=== PATIENT | male | born 1960 | race Caucasian/White ===

== ENCOUNTER 2018-11-19 08:15 | Outpatient (RCR) | payer MEDICARE, SELFPAY ==
[2018-08-28 12:26] VITALS: BMI 34.2
[2018-10-29 16:09] LABS: Hematocrit 26.7 % (40-54); Hemoglobin 8.6 g/dL (13.0-16.5); Mean Corp Hgb Conc 32.2 g/dL (32-36); Mean Corpuscular Hgb 32.7 pg (27.0-32.0); Mean Corpuscular Volume 101.5 fL (80-94); Mean Platelet Vol. 10.1 fl (6.2-12.0); Platelet Count 172 K/mm3 (150-450); RBC Distribution Width CV 16.3 % (11.6-14.6); RBC Distribution Width SD 59.2 fl (35.1-43.9); Red Blood Count 2.63 M/mm3 (4.6-6.2); White Blood Count 11.1 K/mm3 (4.4-11.0)
[2018-10-29 17:01] LABS: BUN 81 mg/dL (7-18); BUN/Creat Ratio 6.7 RATIO (10-20); Calcium,Total 10.2 mg/dL (8.5-10.1); Chloride 100 mmol/L (98-107); EST Glomerular Filtration Rate 5 mL/min (>60); Est Glom Filt Rate - Afr Amer 6 mL/min (>60); Glucose 92 mg/dL (74-106); Phosphorus 7.5 mg/dL (2.5-4.9); Potassium 3.8 mmol/L (3.5-5.1); Sodium Level 138 mmol/L (136-145)
[2018-10-29 17:03] LABS: Protein:Creat Ratio 1982 mg/g CRE (0-200)
[2018-10-31 14:51] LABS: Prograf-FK506 TO CCF/UNIV MAILED SPECIMEN
[2018-11-02 08:35] LABS: Hematocrit 26.4 % (40-54); Hemoglobin 8.7 g/dL (13.0-16.5); Mean Corpuscular Hgb 33.7 pg (27.0-32.0); Mean Corpuscular Volume 102.3 fL (80-94); Mean Platelet Vol. 9.7 fl (6.2-12.0); Platelet Count 179 K/mm3 (150-450); RBC Distribution Width CV 16.6 % (11.6-14.6); RBC Distribution Width SD 60.9 fl (35.1-43.9); Red Blood Count 2.58 M/mm3 (4.6-6.2); White Blood Count 8.5 K/mm3 (4.4-11.0)
[2018-11-02 09:02] LABS: BUN 54 mg/dL (7-18); BUN/Creat Ratio 6.5 RATIO (10-20); Chloride 101 mmol/L (98-107); Creatinine, Serum 8.26 mg/dL (0.70-1.30); EST Glomerular Filtration Rate 7 mL/min (>60); Est Glom Filt Rate - Afr Amer 9 mL/min (>60); Glucose 106 mg/dL (74-106); Phosphorus 7.1 mg/dL (2.5-4.9); Potassium 3.6 mmol/L (3.5-5.1); Sodium Level 138 mmol/L (136-145)
[2018-11-02 09:16] LABS: Prograf-FK506 TO CCF/UNIV MAILED SPECIMEN
[2018-11-05 08:47] LABS: Hematocrit 26.9 % (40-54); Hemoglobin 8.6 g/dL (13.0-16.5); Mean Corpuscular Hgb 33.3 pg (27.0-32.0); Mean Corpuscular Volume 104.3 fL (80-94); Mean Platelet Vol. 9.4 fl (6.2-12.0); Platelet Count 199 K/mm3 (150-450); RBC Distribution Width CV 16.9 % (11.6-14.6); RBC Distribution Width SD 62.9 fl (35.1-43.9); Red Blood Count 2.58 M/mm3 (4.6-6.2); White Blood Count 7.5 K/mm3 (4.4-11.0)
[2018-11-05 09:29] LABS: Prograf-FK506 TO CCF/UNIV MAILED SPECIMEN
[2018-11-05 09:35] LABS: Albumin, Serum 3.1 g/dL (3.2-5.0); BUN 54 mg/dL (7-18); BUN/Creat Ratio 6.3 RATIO (10-20); Calcium,Total 10.1 mg/dL (8.5-10.1); Chloride 104 mmol/L (98-107); EST Glomerular Filtration Rate 7 mL/min (>60); Est Glom Filt Rate - Afr Amer 8 mL/min (>60); Glucose 103 mg/dL (74-106); Phosphorus 6.2 mg/dL (2.5-4.9); Potassium 3.9 mmol/L (3.5-5.1); Sodium Level 139 mmol/L (136-145)
[2018-11-07 08:31] LABS: Hematocrit 28.6 % (40-54); Hemoglobin 9.1 g/dL (13.0-16.5); Mean Corp Hgb Conc 31.8 g/dL (32-36); Mean Corpuscular Hgb 33.2 pg (27.0-32.0); Mean Corpuscular Volume 104.4 fL (80-94); Mean Platelet Vol. 9.5 fl (6.2-12.0); Platelet Count 223 K/mm3 (150-450); RBC Distribution Width CV 17.1 % (11.6-14.6); Red Blood Count 2.74 M/mm3 (4.6-6.2); White Blood Count 8.1 K/mm3 (4.4-11.0)
[2018-11-07 08:55] LABS: Albumin, Serum 3.2 g/dL (3.2-5.0); BUN 47 mg/dL (7-18); BUN/Creat Ratio 6.4 RATIO (10-20); Chloride 106 mmol/L (98-107); Creatinine, Serum 7.34 mg/dL (0.70-1.30); EST Glomerular Filtration Rate 8 mL/min (>60); Est Glom Filt Rate - Afr Amer 10 mL/min (>60); Glucose 109 mg/dL (74-106); Phosphorus 6.3 mg/dL (2.5-4.9); Potassium 3.8 mmol/L (3.5-5.1); Sodium Level 144 mmol/L (136-145)
[2018-11-07 09:04] LABS: Prograf-FK506 TO CCF/UNIV MAILED SPECIMEN
[2018-11-09 08:34] LABS: Hematocrit 27.9 % (40-54); Hemoglobin 8.9 g/dL (13.0-16.5); Mean Corp Hgb Conc 31.9 g/dL (32-36); Mean Corpuscular Hgb 33.5 pg (27.0-32.0); Mean Corpuscular Volume 104.9 fL (80-94); Mean Platelet Vol. 9.6 fl (6.2-12.0); POSITIVE MORPHOLOGY YES; Platelet Count 207 K/mm3 (150-450); RBC Distribution Width CV 17.2 % (11.6-14.6); RBC Distribution Width SD 65.9 fl (35.1-43.9); Red Blood Count 2.66 M/mm3 (4.6-6.2); Scan Indicated on CBC? Y/N YES- FLAGS NOTED
[2018-11-09 09:03] LABS: Albumin, Serum 3.2 g/dL (3.2-5.0); BUN 65 mg/dL (7-18); BUN/Creat Ratio 7.8 RATIO (10-20); Calcium,Total 10.1 mg/dL (8.5-10.1); Chloride 109 mmol/L (98-107); Creatinine, Serum 8.38 mg/dL (0.70-1.30); EST Glomerular Filtration Rate 7 mL/min (>60); Est Glom Filt Rate - Afr Amer 9 mL/min (>60); Glucose 114 mg/dL (74-106); Phosphorus 6.8 mg/dL (2.5-4.9); Potassium 4.1 mmol/L (3.5-5.1); Sodium Level 143 mmol/L (136-145)
[2018-11-09 09:12] LABS: Prograf-FK506 TO CCF/UNIV MAILED SPECIMEN
[2018-11-12 08:43] LABS: Hematocrit 26.6 % (40-54); Hemoglobin 8.5 g/dL (13.0-16.5); Mean Corpuscular Hgb 33.1 pg (27.0-32.0); Mean Corpuscular Volume 103.5 fL (80-94); Mean Platelet Vol. 9.5 fl (6.2-12.0); POSITIVE MORPHOLOGY YES; Platelet Count 189 K/mm3 (150-450); RBC Distribution Width CV 17.4 % (11.6-14.6); Red Blood Count 2.57 M/mm3 (4.6-6.2); White Blood Count 7.8 K/mm3 (4.4-11.0)
[2018-11-12 08:56] LABS: Scan Indicated on CBC? Y/N YES- FLAGS NOTED
[2018-11-12 09:27] LABS: Prograf-FK506 TO CCF/UNIV MAILED SPECIMEN
[2018-11-12 09:39] LABS: Albumin, Serum 3.1 g/dL (3.2-5.0); BUN 88 mg/dL (7-18); BUN/Creat Ratio 11.5 RATIO (10-20); Calcium,Total 10.1 mg/dL (8.5-10.1); Chloride 108 mmol/L (98-107); Creatinine, Serum 7.63 mg/dL (0.70-1.30); EST Glomerular Filtration Rate 8 mL/min (>60); Est Glom Filt Rate - Afr Amer 10 mL/min (>60); Glucose 113 mg/dL (74-106); Phosphorus 6.7 mg/dL (2.5-4.9); Potassium 4.4 mmol/L (3.5-5.1); Sodium Level 141 mmol/L (136-145)
[2018-11-15 09:05] LABS: Hematocrit 29.9 % (40-54); Hemoglobin 9.6 g/dL (13.0-16.5); Mean Corp Hgb Conc 32.1 g/dL (32-36); Mean Corpuscular Hgb 33.4 pg (27.0-32.0); Mean Corpuscular Volume 104.2 fL (80-94); Mean Platelet Vol. 9.8 fl (6.2-12.0); POSITIVE MORPHOLOGY YES; Platelet Count 210 K/mm3 (150-450); RBC Distribution Width CV 17.2 % (11.6-14.6); RBC Distribution Width SD 65.9 fl (35.1-43.9); Red Blood Count 2.87 M/mm3 (4.6-6.2)
[2018-11-15 09:10] LABS: Scan Indicated on CBC? Y/N YES- FLAGS NOTED
[2018-11-15 09:26] LABS: Prograf-FK506 TO CCF/UNIV MAILED SPECIMEN
[2018-11-15 09:33] LABS: Albumin, Serum 3.4 g/dL (3.2-5.0); BUN 85 mg/dL (7-18); BUN/Creat Ratio 13.1 RATIO (10-20); Calcium,Total 10.4 mg/dL (8.5-10.1); Chloride 111 mmol/L (98-107); Creatinine, Serum 6.47 mg/dL (0.70-1.30); EST Glomerular Filtration Rate 10 mL/min (>60); Est Glom Filt Rate - Afr Amer 12 mL/min (>60); Glucose 95 mg/dL (74-106); Potassium 5.1 mmol/L (3.5-5.1); Sodium Level 142 mmol/L (136-145)
[2018-11-19 09:18] LABS: Prograf-FK506 TO CCF/UNIV MAILED SPECIMEN
[2018-11-19 09:33] LABS: Hemoglobin 10.2 g/dL (13.0-16.5); Mean Corp Hgb Conc 31.9 g/dL (32-36); Mean Corpuscular Volume 103.6 fL (80-94); POSITIVE MORPHOLOGY YES; Platelet Count 205 K/mm3 (150-450); RBC Distribution Width CV 17.5 % (11.6-14.6); RBC Distribution Width SD 66.4 fl (35.1-43.9); Red Blood Count 3.09 M/mm3 (4.6-6.2); White Blood Count 12.8 K/mm3 (4.4-11.0)
[2018-11-19 09:36] LABS: Scan Indicated on CBC? Y/N YES- FLAGS NOTED
[2018-11-19 10:00] LABS: Albumin, Serum 3.5 g/dL (3.2-5.0); BUN 70 mg/dL (7-18); BUN/Creat Ratio 13.7 RATIO (10-20); Calcium,Total 10.9 mg/dL (8.5-10.1); Chloride 114 mmol/L (98-107); Creatinine, Serum 5.12 mg/dL (0.70-1.30); EST Glomerular Filtration Rate 13 mL/min (>60); Est Glom Filt Rate - Afr Amer 15 mL/min (>60); Glucose 94 mg/dL (74-106); Phosphorus 4.6 mg/dL (2.5-4.9); Potassium 5.3 mmol/L (3.5-5.1); Sodium Level 143 mmol/L (136-145)
[2018-11-19 10:01] LABS: Differential Comment SCANNED
== END 2018-11-22 09:00 | disposition home or self-care (01) ==
LOC: LAB 08:15
PROVIDERS: Family Provider Family Medicine; PCP Family Medicine
DX: Z94.0 Kidney transplant status (principal)
CPT/HCPCS: 36415; 80069; 82570; 84156; 85027

== ENCOUNTER 2018-12-24 08:26 | Outpatient (RCR) | payer MEDICARE, SELFPAY ==
[2018-08-28 12:26] VITALS: BMI 34.2
[2018-11-27 09:20] LABS: Prograf-FK506 TO CCF/UNIV MAILED SPECIMEN
[2018-11-27 09:24] LABS: Hematocrit 30.4 % (40-54); Hemoglobin 9.6 g/dL (13.0-16.5); Mean Corp Hgb Conc 31.6 g/dL (32-36); Mean Corpuscular Hgb 33.1 pg (27.0-32.0); Mean Corpuscular Volume 104.8 fL (80-94); Mean Platelet Vol. 9.9 fl (6.2-12.0); POSITIVE MORPHOLOGY YES; Platelet Count 183 K/mm3 (150-450); RBC Distribution Width CV 17.5 % (11.6-14.6); RBC Distribution Width SD 67.3 fl (35.1-43.9); White Blood Count 8.6 K/mm3 (4.4-11.0)
[2018-11-27 09:30] LABS: Scan Indicated on CBC? Y/N YES- FLAGS NOTED
[2018-11-27 09:47] LABS: Albumin, Serum 3.2 g/dL (3.2-5.0); BUN 44 mg/dL (7-18); BUN/Creat Ratio 10.9 RATIO (10-20); Calcium,Total 10.3 mg/dL (8.5-10.1); Chloride 112 mmol/L (98-107); Creatinine, Serum 4.04 mg/dL (0.70-1.30); EST Glomerular Filtration Rate 16 mL/min (>60); Est Glom Filt Rate - Afr Amer 20 mL/min (>60); Glucose 104 mg/dL (74-106); Phosphorus 4.1 mg/dL (2.5-4.9); Potassium 4.5 mmol/L (3.5-5.1); Sodium Level 142 mmol/L (136-145)
[2018-12-10 08:43] LABS: Hematocrit 32.1 % (40-54); Hemoglobin 9.9 g/dL (13.0-16.5); Mean Corp Hgb Conc 30.8 g/dL (32-36); Mean Corpuscular Hgb 33.4 pg (27.0-32.0); Mean Corpuscular Volume 108.4 fL (80-94); Mean Platelet Vol. 9.7 fl (6.2-12.0); POSITIVE MORPHOLOGY YES; Platelet Count 190 K/mm3 (150-450); RBC Distribution Width CV 18.3 % (11.6-14.6); RBC Distribution Width SD 72.7 fl (35.1-43.9); Red Blood Count 2.96 M/mm3 (4.6-6.2); White Blood Count 7.6 K/mm3 (4.4-11.0)
[2018-12-10 08:45] LABS: Scan Indicated on CBC? Y/N YES- FLAGS NOTED
[2018-12-10 09:22] LABS: Prograf-FK506 TO CCF/UNIV MAILED SPECIMEN
[2018-12-10 09:24] LABS: Albumin, Serum 3.1 g/dL (3.2-5.0); BUN 34 mg/dL (7-18); BUN/Creat Ratio 12.2 RATIO (10-20); Calcium,Total 10.3 mg/dL (8.5-10.1); Chloride 117 mmol/L (98-107); Creatinine, Serum 2.78 mg/dL (0.70-1.30); EST Glomerular Filtration Rate 25 mL/min (>60); Est Glom Filt Rate - Afr Amer 31 mL/min (>60); Glucose 88 mg/dL (74-106); Phosphorus 3.9 mg/dL (2.5-4.9); Potassium 5.3 mmol/L (3.5-5.1); Sodium Level 145 mmol/L (136-145)
[2018-12-17 08:36] LABS: Hematocrit 31.9 % (40-54); Mean Corp Hgb Conc 31.3 g/dL (32-36); Mean Corpuscular Hgb 34.1 pg (27.0-32.0); Mean Corpuscular Volume 108.9 fL (80-94); POSITIVE MORPHOLOGY YES; Platelet Count 176 K/mm3 (150-450); RBC Distribution Width CV 18.5 % (11.6-14.6); RBC Distribution Width SD 75.6 fl (35.1-43.9); Red Blood Count 2.93 M/mm3 (4.6-6.2); White Blood Count 8.5 K/mm3 (4.4-11.0)
[2018-12-17 08:38] LABS: Scan Indicated on CBC? Y/N YES- FLAGS NOTED
[2018-12-17 09:12] LABS: Prograf-FK506 TO CCF/UNIV MAILED SPECIMEN
[2018-12-17 09:22] LABS: Albumin, Serum 3.2 g/dL (3.2-5.0); BUN 34 mg/dL (7-18); BUN/Creat Ratio 12.8 RATIO (10-20); Calcium,Total 10.7 mg/dL (8.5-10.1); Chloride 118 mmol/L (98-107); Creatinine, Serum 2.66 mg/dL (0.70-1.30); EST Glomerular Filtration Rate 27 mL/min (>60); Est Glom Filt Rate - Afr Amer 32 mL/min (>60); Glucose 108 mg/dL (74-106); Phosphorus 2.9 mg/dL (2.5-4.9); Potassium 5.2 mmol/L (3.5-5.1); Sodium Level 144 mmol/L (136-145)
[2018-12-24 08:59] LABS: Hematocrit 33.1 % (40-54); Hemoglobin 10.2 g/dL (13.0-16.5); Mean Corp Hgb Conc 30.8 g/dL (32-36); Mean Corpuscular Hgb 33.4 pg (27.0-32.0); Mean Corpuscular Volume 108.5 fL (80-94); Mean Platelet Vol. 10.4 fl (6.2-12.0); POSITIVE MORPHOLOGY YES; Platelet Count 178 K/mm3 (150-450); RBC Distribution Width SD 72.5 fl (35.1-43.9); Red Blood Count 3.05 M/mm3 (4.6-6.2); White Blood Count 8.7 K/mm3 (4.4-11.0)
[2018-12-24 09:03] LABS: Scan Indicated on CBC? Y/N YES- FLAGS NOTED
[2018-12-24 09:26] LABS: BUN 28 mg/dL (7-18); Creatinine, Serum 2.74 mg/dL (0.70-1.30); Glucose 95 mg/dL (74-106)
[2018-12-24 09:27] LABS: Albumin, Serum 3.4 g/dL (3.2-5.0); BUN/Creat Ratio 10.2 RATIO (10-20); Calcium,Total 10.9 mg/dL (8.5-10.1); Chloride 117 mmol/L (98-107); EST Glomerular Filtration Rate 26 mL/min (>60); Est Glom Filt Rate - Afr Amer 31 mL/min (>60); Phosphorus 3.1 mg/dL (2.5-4.9); Potassium 4.9 mmol/L (3.5-5.1); Sodium Level 144 mmol/L (136-145)
[2019-01-10 10:41] LABS: Prograf-FK506 TO CCF/UNIV MAILED SPECIMEN
== END 2018-12-24 16:27 | disposition home or self-care (01) ==
LOC: LAB 08:26
PROVIDERS: Family Provider Family Medicine; PCP Family Medicine
DX: Z94.0 Kidney transplant status (principal)
CPT/HCPCS: 36415; 80069; 80197; 85027

== ENCOUNTER → 2020-06-08 07:18 | Outpatient (CLI) | payer MEDICARE, SELFPAY ==
[2020-05-29 08:16] VITALS: BMI 32.0
--- NOTE | 2020-06-08 12:54 | STRESSREP ---
Stress Test Report Pharmacologic myocardial perfusion stress test. 59-year-old male with a history of coronary artery disease status post angioplasty and stenting of the left circumflex artery. Stress protocol: Resting EKG demonstrates sinus bradycardia with a rate of 47 bpm normal intervals are noted resting blood pressure is 1 and 32/60 8 mmHg. 0.4 mg of regadenoson was infused per usual protocol followed by rapid intravenous saline flush injection continuous EKG monitoring was performed. The maximum heart rate attained was 72 bpm which was 44% of max impacted heart rate the maximum workload was 1 metabolic equivalent. At rest there were no ST or T wave changes noted to suggest abnormal flow reserve. The resting blood pressure is 1 and 32/68 with a final blood pressure 142/78 mmHg. Myocardial perfusion protocol. 13.9 mCi of technetium 99m sestamibi was injected at rest. 0.4 mg of regadenoson was infused per usual protocol. At peak infusion 44.3 mCi of technetium 99m?sestamibi was injected stress images were obtained stress and rest images were reconstructed and compared in the short axis vertical long and horizontal long axis. Gated images were also obtained Perfusion SPECT analysis: Review of the stress images demonstrate a normal cardiac silhouette size. There is a medium size defect noted in the basal inferior wall as well as the mid inferior wall on the stress images and on the resting images a similar pattern is also noted. The rest of the henderson namely the septum anterior wall and lateral wall appear to be well perfused without any reversibility to suggest ischemia. The above is suggestive of a previous inferior myocardial infarction. Gated SPECT analysis: The gated ejection fraction is 64%. Conclusion: Pharmacologic myocardial perfusion stress test with evidence of previous inferior infarct. No ischemia noted. Preserved ejection fraction.
== END ==
PROVIDERS: PCP Family Medicine; Referring Provider Internal Medicine Cardiovascular Disease; Visit Provider Internal Medicine Cardiovascular Disease
DX: I25.10 Atherosclerotic heart disease of native coronary artery without angina pectoris (principal); Z95.5 Presence of coronary angioplasty implant and graft
CPT/HCPCS: 78452; 93017; A9500; A4216; J2785

== ENCOUNTER → 2021-12-08 | Outpatient (CLI) | payer MEDICARE, SELFPAY ==
--- NOTE | 2021-12-08 13:12 | CDU_ITS ---
Reason For Study: BRUIT Rt. Velocities/BP Lt. Velocities/BP Prox CCA 96.0/11.3 cm/sec. Prox CCA 120.4/16.3 cm/sec. Mid CCA 75.4/14.9 cm/sec. Mid CCA 111.2/25.4 cm/sec. Dist CCA 53.4/13.8 cm/sec. Dist CCA 100.3/19.9 cm/sec. Prox ICA 46.2/13.1 cm/sec. Prox ICA 57.4/6.8 cm/sec. Mid ICA 60.4/20.7 cm/sec. Mid ICA 63.3/21.5 cm/sec. Dist ICA 114.3/28.5 cm/sec. Dist ICA 87.5/27.0 cm/sec. Rt. ICA/CCA = 114.3/75.4=1.52. Lt. ICA/CCA = 87.5/111.2=0.79. Prox ECA 86.4/8.4 cm/sec. Prox ECA 82.0/8.9 cm/sec. Rt. Vert. 29.0/7.2 cm/sec. Lt. Vert. 62.9/18.5 cm/sec. Right Extracranial There is heterogeneous, smooth atherosclerotic plaque noted in the right common carotid artery. There is heterogeneous, irregular atherosclerotic plaque noted in the right internal carotid artery. The right internal carotid artery is very tortuous. There is heterogeneous, irregular atherosclerotic plaque noted in the right external carotid artery. Antegrade flow is noted in the right vertebral artery. Left Extracranial There is heterogeneous, irregular atherosclerotic plaque noted in the left common carotid artery. There is heterogeneous, irregular atherosclerotic plaque noted in the left internal carotid artery. The atherosclerotic plaque causes acoustic shadowing. There is heterogeneous, smooth atherosclerotic plaque noted in the left external carotid artery. Antegrade flow is noted in the left vertebral artery. Procedure Carotid Duplex 52691. The study was technically difficult. Exam performed in department. VL/Carotid Duplex Ultrasound Interpretation Summary Mild (<50%) stenosis right extracranial internal carotid. Mild (<50%) stenosis left extracranial internal carotid. Patent and antegrade vertebrals bilaterally. Ordering Physician: Wil Dowell Referring Physician: Bro Bowie Performed By: Kati Morocho, VÍCTOR, RVT
== END | disposition home or self-care (01) ==
LOC: CVS 13:11
PROVIDERS: PCP Family Medicine; Referring Provider Internal Medicine Cardiovascular Disease; Visit Provider Internal Medicine Cardiovascular Disease
DX: I65.23 Occlusion and stenosis of bilateral carotid arteries (principal)
CPT/HCPCS: 93880

== ENCOUNTER → 2022-04-13 | Outpatient (CLI) | payer MEDICARE, SELFPAY ==
--- NOTE | 2022-04-13 13:59 | ECHOD_ITS ---
Reason For Study: Evaluate Aortic root Procedure This was a 2D Doppler, Color Flow transthoracic echocardiogram. Exam performed in department. Left Ventricle Normal LV size. Moderate concentric left ventricular hypertrophy. Left ventricular systolic function is normal. The estimated ejection fraction is 60 %. Stage 3 diastolic dysfunction. No regional wall motion abnormalities noted. Right Ventricle Normal RV size. Normal systolic function. Atria The left atrium is moderately enlarged. The right atrium is moderately enlarged. Mitral Valve There is mild to moderate mitral annular calcification. Mild (1+) eccentric mitral valve insufficiency. Tricuspid Valve Normal tricuspid valve. Mild tricuspid valve insufficiency. Pulmonary artery systolic pressure is 32 mmHg. Aortic Valve Trisinus/trileaflet aortic valve. Mild focal aortic valve calcification. Pulmonic Valve Normal pulmonic valve. Great Vessels Mildly dilated aortic root. The pulmonary artery is normal size. Normal inferior vena cava. Pericardium/Pleural No pericardial effusion. MMode/2D Measurements & Calculations LVIDd: 4.5 cm IVSd: 1.5 cm Ao root diam: 4.4 cm LVIDs: 2.4 cm LVPWd: 1.5 cm RVDd: 3.4 cm FS: 45.7 % LAV(MOD-bp): 92.2 ml LVAd ap4: 25.0 cm2 SV(MOD-sp4): 39.9 ml LAV(MOD-bp) Indexed: 42.2 ml/m2 LVLd ap4: 7.7 cm LAV(MOD-sp2): 115.0 ml EDV(MOD-sp4): 67.4 ml LAV(MOD-sp4): 72.4 ml EDV(sp4-el): 69.4 ml LVAs ap4: 15.4 cm2 LVLs ap4: 6.9 cm ESV(MOD-sp4): 27.5 ml ESV(sp4-el): 29.0 ml EF(MOD-sp4): 59.2 % EF(sp4-el): 58.2 % SV(sp4-el): 40.4 ml LA A4 area: 26.3 cm2 LA dimension(2D): 4.0 cm RA A4 area: 29.4 cm2 Time Measurements MV dec time: 0.20 sec Doppler Measurements & Calculations MV E max bentley: 120.7 cm/sec Lat Peak E' Bentley: 10.6 cm/sec Med Peak E' Bentley: 12.2 cm/sec MV A max bentley: 23.8 cm/sec E/E' lat: 11.4 E/E' med: 9.9 MV E/A: 5.1 MV V2 max: 131.0 cm/sec Ao V2 max: 153.0 cm/sec MV max P.9 mmHg MV dec slope: 611.3 cm/sec2 Ao max P.5 mmHg MV V2 mean: 63.7 cm/sec Ao V2 mean: 104.9 cm/sec MV mean P.2 mmHg Ao mean P.2 mmHg MV V2 VTI: 33.9 cm Ao V2 VTI: 32.6 cm AV (velocity ratio): 0.86 LV V1 max: 127.7 cm/sec PA V2 max: 110.1 cm/sec TR max bentley: 263.8 cm/sec LV V1 max P.5 mmHg PA V2 mean: 68.6 cm/sec TR max P.8 mmHg LV V1 mean P.6 mmHg LV V1 mean: 88.5 cm/sec LV V1 VTI: 28.1 cm ECHO/Echo Complete Interpretation Summary Normal LV size. Moderate concentric left ventricular hypertrophy. Left ventricular systolic function is normal. The estimated ejection fraction is 60 %. Stage 3 diastolic dysfunction. Mildly dilated aortic root. Compared to the previous echocardiogram the aortic root dimensions are essentially unchanged measuring 4.3 to 4.4 cm Ordering Physician: Gamal Giron Referring Physician: Bro Bowie Performed By: Tiffany Davey RCS
== END | disposition home or self-care (01) ==
PROVIDERS: PCP Family Medicine; Visit Provider Nurse Practitioner Family
DX: I25.10 Atherosclerotic heart disease of native coronary artery without angina pectoris (principal); I77.819 Aortic ectasia, unspecified site; I10 Essential (primary) hypertension; Z94.0 Kidney transplant status; Z95.5 Presence of coronary angioplasty implant and graft
CPT/HCPCS: 93306

== ENCOUNTER → 2022-07-21 | Outpatient (CLI) | payer MEDICARE, SELFPAY | END | disposition home or self-care (01) | LOC: CVS 10:45 | PROVIDERS: PCP Family Medicine; Referring Provider Internal Medicine Cardiovascular Disease; Visit Provider Internal Medicine Cardiovascular Disease | DX: R03.0 Elevated blood-pressure reading, without diagnosis of hypertension (principal) | CPT/HCPCS: 93788 ==

== ENCOUNTER → 2022-08-03 | Outpatient (CLI) | payer MEDICARE, SELFPAY ==
--- NOTE | 2022-08-03 17:24 | STRESSREP ---
Stress Test Report Exercise myocardial perfusion stress test. 62-year-old man with a history of coronary artery disease and new onset atrial fibrillation Stress protocol: Resting EKG demonstrates atrial fibrillation with a rate of 57 bpm resting blood pressure is 124/66 mmHg. The patient exercised according to the regular Jean protocol for a total duration of 4 minutes and 35 seconds attaining a maximum heart rate of 136 bpm which was 85% of maximum predicted heart rate; the maximum workload was 7 metabolic equivalents. At rest there were no ST or T wave changes noted to suggest ischemia and at peak exercise upsloping ST changes only were noted which did not meet the criteria for ischemia. No clinical angina was noted the test was terminated due to the target heart rate being achieved/fatigue. The peak blood pressure was 152/70 mmHg. Rate-pressure product was 12,600. Myocardial perfusion protocol. 14.2 mCi of technetium 99m sestamibi was injected at rest. The patient exercised according to regular Jaen protocol for total duration of 4 minutes and 35 seconds and at peak exercise 44.1 mCi of technetium 99m sestamibi was injected stress images were obtained stress and rest images were reconstructed in comparing the short axis vertical long and horizontal long axis. Gated images were also obtained. Perfusion SPECT analysis: Review of the stress images demonstrate normal uptake of tracer noted in all areas of the myocardium. Significant GI uptake is noted obscuring part of the inferior wall the resting images similarly demonstrate normal uptake of tracer noted in all areas of the myocardium. Significant GI uptake is noted and no areas of reversibility are noted to suggest ischemia no previous infarct was noted. Gated SPECT analysis: The gated ejection fraction is 60%. Conclusion: Normal exercise myocardial perfusion stress test at a moderate workload. GI uptake noted. Atrial fibrillation present Preserved ejection fraction.
== END | disposition home or self-care (01) ==
LOC: CVS 06:41
PROVIDERS: PCP Family Medicine; Referring Provider Nurse Practitioner Family; Visit Provider Nurse Practitioner Family
DX: R06.02 Shortness of breath (principal); I48.91 Unspecified atrial fibrillation; I25.10 Atherosclerotic heart disease of native coronary artery without angina pectoris; Z95.5 Presence of coronary angioplasty implant and graft
CPT/HCPCS: 78452; 93017; A9500; A4216

== ENCOUNTER 2022-09-26 10:33 | Day surgery (SDC) | payer MEDICARE, SELFPAY ==
[2022-09-23 08:06] VITALS: BMI 33.0
[2022-09-26 11:10] LABS: International Normalized Ratio 2.8; Prothrombin Time (Protime)PT. 29.6 SECONDS (11.7-14.9)
[2022-09-26 11:15] LABS: AST(SGOT) 17 U/L (15-37); Alanine Aminotransfer ALT/SGPT 29 U/L (16-61); Albumin, Serum 3.4 g/dL (3.2-5.0); Alkaline Phosphatase 82 U/L (45-117); Anion Gap 1 (5-15); BUN 32 mg/dL (7-18); BUN/Creat Ratio 15.2 RATIO (10-20); Bilirubin, Direct 0.27 mg/dL (0.00-0.30); Calcium,Total 9.4 mg/dL (8.5-10.1); Chloride 114 mmol/L (98-107); Cholesterol 88 mg/dL (200); Creatinine, Serum 2.11 mg/dL (0.70-1.30); EST Glomerular Filtration Rate 34 mL/min (>60); Est Glom Filt Rate - Afr Amer 41 mL/min (>60); Estimated Creatinine Clearance 37.23 ml/min; Globulin 3.4 g/dL (2.2-4.2); Glucose 92 mg/dL (74-106); High Density Lipoprotein 41 mg/dL; Potassium 4.9 mmol/L (3.5-5.1); Protein, Total 6.8 g/dL (6.4-8.2); Sodium Level 140 mmol/L (136-145); Triglycerides 55 mg/dL; Very Low Density Lipoprotein 11 mg/dL (5-40)
[2022-09-26 11:55] VITALS: PULSE 59; RESP 12; RESP 18; O2SAT 100
--- NOTE | 2022-09-26 12:15 | CON.PCM.CC_ITS ---
Assessment & Plan Assessment/Plan (1) New onset atrial fibrillation: PLAN: cleared for elective cardioversion under moderate sedation with propofol. Patient is ASA III with Mallampati 2 airway. CPAP during procedure as noted below, in semi-Louise's position. - patient had successful cardioversion x 1 uneventfully, with stable card iorespiratory parameters. 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 Plan to provide CPAP 14 cm with nasal mask during procedure to avoid hypoxia/respiratory instability during procedure. HPI Consult Data Date of Consult: 09/26/22 HPI Narrative Reason for Consultation: moderate sedation, TOMY, former 45 pack year smoker, for c'version for AF HPI Narrative: KATIE ALVARADO, is a 62 M who presents with ~2 weeks of fatigue, found to be in afib/bradycardia. He has been chronically anticoagulated since recurrent DVTs in ~2007; never recurred on anticoagulation, no PEs. 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 PMH remarkable for TOMY on CPAP nasal mask since ~2003, managed on 14 cm by his primary physician. Cannot sleep flat due to can't breathe. No h/o CHF or edema. Compliant with CPAP nightly, feels rested after use, can't sleep without it. 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 Had post op NE, cath with SHAHBAZ stent to RCA 2016, echo 04/18 EF 55-60%, mod concentric LVH, diastolic dysfuntion. Cardiology visit 08/30 with BMI 33, wt 224 lbs, SpO2 RA 97%. Stress test 08/16 negative for ischemia. EKG showed AF rate 43 (on metoprolol). Chart reviewed. Former 45 pack-year smoker, quit 2013. no drug or significant EtOH use, no trouble with anesthesia, no pulmonary symptoms, pleurisy, wheeze, cough, has mMRC class 2 dyspnea (stops walking up incline). Not on onhalers, no PFT results remembered, not on O2. No prior dx of asthma or COPD. Prior remote pneumonia with complete recovery. Meds reviewed. Fam Hx, social hx, 10 system ROS unremarkable. Stated normal renal function. Shunt functioning well. [facility] Medical History (Updated 09/26/22 @ 12:[address] Zack Mcarthur MD) Aortic dilatation Atherosclerotic heart disease of [place] coronary artery without angina pectoris Carotid bruit Chronic progressive renal failure DVT (deep venous thrombosis) End stage chronic kidney disease Essential (primary) hypertension Obstructive sleep apnea (adult) (pediatric) Peripheral vascular occlusive disease Postoperative non-ST elevation myocardial infarction (NSTEMI) (10/12/18) Recurrent deep vein thrombosis Home Medications warfarin 3 mg tablet 3 mg PO 2XW 08/10/17 [History Last Taken Unknown] clopidogrel 75 mg tablet 75 mg PO QDAY #90 tabs 08/28/18 [Rx Last Taken Unknown] atorvastatin 80 mg tablet 80 mg PO QHS 02/15/19 [History Last Taken Unknown] prednisone 5 mg tablet 5 mg PO DAILY 08/21/19 [History Last Taken Unknown] valacyclovir 500 mg tablet 500 mg PO BID 05/29/20 [History Last Taken Unknown] tacrolimus 0.5 mg capsule, immediate-release 0.5 mg PO Q12H 10/19/21 [History Last Taken Unknown] amlodipine 10 mg tablet 10 mg PO DAILY 07/28/22 [History Last Taken Unknown] losartan 25 mg tablet 25 mg PO BID 07/28/22 [History Last Taken Unknown] metoprolol succinate 25 mg tablet,extended release 24 hr 25 mg PO DAILY 07/28/22 [History Last Taken Unknown] tamsulosin 0.4 mg capsule 0.8 mg PO DAILY 07/28/22 [History Last Taken Unknown] warfarin 2 mg tablet 2 mg PO 4XW 07/28/22 [History Last Taken Unknown] Allergy/AdvReac Type Severity Reaction Status Date / Time No Known Allergies Allergy Verified 09/23/22 08:12 Family History (Reviewed 08/29/22 @ 13:42 by Gamal Giron CHILD CARE CENTER ADMINISTRATOR, CHILD CARE CENTER ADMINISTRATOR-C) Mother CAD (coronary artery disease) Brother CAD (coronary artery disease) Hypertension Myocardial infarction Other Heart disease Surgical History History of coronary artery stent placement (10/13/18) History of peritoneal dialysis History of renal transplant (10/11/18) Hx of detached retina repair Hx of hemorrhoidectomy Social History (Reviewed 08/29/22 @ 13:42 by Gamal Giron CHILD CARE CENTER ADMINISTRATOR, CHILD CARE CENTER ADMINISTRATOR-C) Smoking Status: Former smoker alcohol intake: never substance use type: does not use caffeine: Yes Type: coffee Number of servings: 3 Physical Exam Const alert, oriented x3 and no apparent distress Constitutional Narrative: BMI 33 General Appearance: cooperative and comfortable Orientation / Consciousness: awake, oriented to person, oriented to place and oriented to time Exam Limitations: no limitations HEENT normocephalic HEENT Narrative: Mallampati 2 airway Head and Scalp: normal to inspection Face and Sinus: normal facial exam Nose: external nose normal Mouth: oral and palatal mucosa normal, lips normal and tongue normal Eyes PERRL and conjunctivae normal EOM: EOM abnormal Neck full ROM and no JVD General: normal visual inspection Lymph Lymphatic: no lymphadenopathy noted Chest inspection of chest normal Chest Narrative: normal to auscultation. Resp normal respiratory effort, normal air movement and clear to auscultation bilaterally Cardio S1 normal heart sound, S2 normal heart sound, no murmurs and peripheral pulses 2+ throughout; Negative for regular rhythm Jugular Venous Distention: Negative for JVD GI normal to inspection, nondistended, normoactive bowel sounds, soft to palpation, non-tender and non-distended Back/Spine no CVA tenderness Extremity Extremity Narrative: chronic venous stasis changes. no edema. Skin General Skin Exam: no breakdown Rashes: no rashes Neuro Speech: speech normal Motor Exam: strength 5/5 throughout Psych mental status grossly normal Speech: normal speech Mood & Affect: euthymic mood Thought Process: normal thought process Insight: insight good Lab / Micro Data 09/26/22 10:42 Labs: Laboratory Results - last 24 hr 09/26/22 10:42: PT 29.6 H, INR 2.8, Sodium 140, Potassium 4.9, Chloride 114 H, Carbon Dioxide 25.0, Anion Gap 1 L, BUN 32 H, Creatinine 2.11 H, Estim Creat Clear Calc 37.23, Est GFR (MDRD) Af Amer 41 L, Est GFR (MDRD) Non-Af 34 L, BUN/Creatinine Ratio 15.2, Glucose 92, Calcium 9.4, Total Bilirubin 0.80, Direct Bilirubin 0.27, AST 17, ALT 29, Alkaline Phosphatase 82, Total Protein 6.8, Albumin 3.4, Globulin 3.4, Triglycerides 55, Cholesterol 88, LDL Cholesterol 36, VLDL Cholesterol 11, HDL Cholesterol 41 Charges/Coding Visit Charges Office Visits / Consults: 90822 OP Consult L3
--- NOTE | 2022-09-26 12:23 | PRO.PCM_ITS ---
Procedure Report Date of Procedure: 09/26/22 DC cardio version. 62-year-old man with a history of symptomatic atrial fibrillation. Patient has been anticoagulated uninterrupted for minimum of 3 weeks. The patient was brought to the noninvasive lab. Informed consent was obtained. Anterior- posterior pads were applied. The patient was placed on a CPAP/BiPAP mask the patient was seen by the Dr. Mcarthur of the critical care division. 100 mg of intravenous propofol was administered and then 200 J of biphasic DC cardioversion energy were applied. Prompt reversal to sinus rhythm was noted. The patient tolerated the procedure well. Conclusion: Successful DC cardioversion from atrial fibrillation to sinus rhythm. Follow-up as per office protocol.
== END 2022-09-26 13:15 | disposition home or self-care (01) ==
LOC: CLSP 10:38
PROVIDERS: Nurse Practitioner Family; PCP Family Medicine; Referring Provider Internal Medicine Cardiovascular Disease; Visit Provider Internal Medicine Cardiovascular Disease
DX: I48.91 Unspecified atrial fibrillation (principal); I12.0 Hypertensive chronic kidney disease with stage 5 chronic kidney disease or end stage renal disease; N18.6 End stage renal disease; I77.819 Aortic ectasia, unspecified site; G47.33 Obstructive sleep apnea (adult) (pediatric); I25.10 Atherosclerotic heart disease of native coronary artery without angina pectoris; I65.23 Occlusion and stenosis of bilateral carotid arteries; I25.2 Old myocardial infarction; E66.9 Obesity, unspecified; Z68.33 Body mass index [BMI] 33.0-33.9, adult; Z94.0 Kidney transplant status; Z95.5 Presence of coronary angioplasty implant and graft; Z79.01 Long term (current) use of anticoagulants; Z79.02 Long term (current) use of antithrombotics/antiplatelets; Z79.899 Other long term (current) drug therapy; Z86.718 Personal history of other venous thrombosis and embolism; Z87.891 Personal history of nicotine dependence
CPT/HCPCS: 80048; 80061; 80076; 85610; 92960; 93005; 94002; J7040; A4216

== ENCOUNTER 2023-10-03 10:55 | Day surgery (SDC) | payer MEDICARE, SELFPAY ==
[2023-10-02 13:58] VITALS: BMI 32.0
[2023-10-03 11:14] LABS: INR Fingerstick 2.2; Prothrombin Time Fingerstick 22.9 SEC (11.7-14.9)
--- NOTE | 2023-10-03 12:26 | PRO.PCM_ITS ---
Procedure Report Date of Procedure: 10/03/23 DC cardioversion. 63-year-old man with a history of chronic persistent atrial fibrillation sy mptomatic. Patient has been on anticoagulation uninterrupted for minimum of 4 weeks. The patient was brought to the cardiac catheterization lab in the postabsorptive nonsedated state. Informed consent was obtained. The patient was seen by Dr. Lama of the critical care division. Anterior-posterior pads were applied. Patient was administered 100 mg of intravenous propofol. 200 J of synchronized DC cardioversion energy were applied with prompt reversal to sinus rhythm. Patient tolerated the procedure well. Conclusion: Successful DC cardioversion from atrial fibrillation to sinus rhythm. Follow-up as per office protocol.
--- NOTE | 2023-10-03 12:32 | PCM.OP.PRO ---
Procedure Report Date of Procedure: 10/03/23 CONSCIOUS SEDATION REPORT DATE OF SERVICE: October 03, 2023 BRIEF HISTORY OF PRESENT ILLNESS: The patient is a 63-year-old male who presented to [facility] for an elective outpatient cardioversion due to underlying atrial fibrillation. The patient denied any prior anesthetic complications. He is systemically anticoagulated on Coumadin with an INR this morning noted to be 2.2. His last surface echocardiogram demonstrated an ejection fraction of approximately 60%. PHYSICAL EXAMINATION: VITAL SIGNS: Reviewed and were acceptable. GENERAL: The patient is a male, in no apparent distress, speaking in full sentences. HEENT: Normocephalic, atraumatic. Mucous membranes are moist and pink. Good mouth opening noted. Trachea is midline. Good neck mobility. CHEST: S1, S2 irregularly irregular. No murmurs, rubs or gallops were noted. LUNGS: Clear to auscultation bilaterally without appreciable wheezes, rales or rhonchi. ABDOMEN: Soft, nontender, nondistended. Positive bowel sounds. EXTREMITIES: There is no clubbing, cyanosis or edema. ASA Class: II DESCRIPTION OF PROCEDURE: After confirmation of informed consent, the patient's anesthesia plan was reviewed in detail. Propofol was chosen. Risks and benefits were reviewed and the patient agreed to proceed. At 1205, the patient was given his first bolus of propofol. In total, the patient required 100 mg of propofol to achieve an appropriate level of sedation, after which time, he was given a 200 joule synchronized cardioversion by Dr. Dowell at the bedside. This was successful in achieving normal sinus rhythm. The patient was monitored until 1218, at which time he reached his baseline mental status and function. The patient tolerated the procedure well. COMPLICATIONS: None ESTIMATED BLOOD LOSS: None RECOMMENDATIONS: Okay to recover in usual fashion. Procedures Pulmonary Pulmonary Procedures /Diagnostic Testin Con Sedation
== END 2023-10-03 13:14 | disposition home or self-care (01) ==
PROVIDERS: PCP Nurse Practitioner Family; Referring Provider Internal Medicine Cardiovascular Disease; Visit Provider Internal Medicine Cardiovascular Disease
DX: I48.19 Other persistent atrial fibrillation (principal); I48.0 Paroxysmal atrial fibrillation; I25.10 Atherosclerotic heart disease of native coronary artery without angina pectoris; Z95.5 Presence of coronary angioplasty implant and graft; Z94.0 Kidney transplant status; Z79.899 Other long term (current) drug therapy; Z79.01 Long term (current) use of anticoagulants; I10 Essential (primary) hypertension; Z87.891 Personal history of nicotine dependence; I77.819 Aortic ectasia, unspecified site
CPT/HCPCS: 36416; 85610; 92960; 93005; J7040

== ENCOUNTER → 2024-06-18 | Outpatient (CLI) | payer MEDICARE, SELFPAY | END | disposition home or self-care (01) | PROVIDERS: PCP Family Medicine; Referring Provider Nurse Practitioner Family; Visit Provider Nurse Practitioner Family | DX: R00.1 Bradycardia, unspecified (principal) | CPT/HCPCS: 93225; 93226 ==

== ENCOUNTER → 2024-12-12 | Outpatient (CLI) | payer MEDICARE, SELFPAY ==
[2024-12-12 11:15] LABS: AST(SGOT) 17 U/L (<=37); Alanine Aminotransfer ALT/SGPT 19 U/L (<=46); Albumin, Serum 4.0 g/dL (3.4-4.8); Alkaline Phosphatase 83 U/L (40-129); Anion Gap 9 (5-15); BUN 32 mg/dL (4-19); BUN/Creat Ratio 18.2 RATIO (10-20); Calcium,Total 9.8 mg/dL (7.6-11.0); Carbon Dioxide 23.0 mmol/L (21.0-32.0); Chloride 106 mmol/L (98-108); Globulin 2.7 g/dL (2.2-4.2); Glucose 94 mg/dL (70-99); Magnesium 2.0 mg/dL (1.5-2.2); Potassium 4.3 mmol/L (3.3-5.1)
== END | disposition home or self-care (01) ==
PROVIDERS: PCP Family Medicine; Referring Provider Nurse Practitioner Family; Visit Provider Nurse Practitioner Family
DX: I48.0 Paroxysmal atrial fibrillation (principal); I77.819 Aortic ectasia, unspecified site; I10 Essential (primary) hypertension; Z94.0 Kidney transplant status; Z95.5 Presence of coronary angioplasty implant and graft
CPT/HCPCS: 36415; 80053; 83735; 84439; 84443

== ENCOUNTER → 2024-12-20 | Outpatient (CLI) | payer MEDICARE, SELFPAY | END | disposition home or self-care (01) | LOC: PSN 08:42 | PROVIDERS: PCP Family Medicine; Referring Provider Nurse Practitioner Family; Visit Provider Nurse Practitioner Family | DX: I77.819 Aortic ectasia, unspecified site (principal); I10 Essential (primary) hypertension; Z94.0 Kidney transplant status; Z95.5 Presence of coronary angioplasty implant and graft | CPT/HCPCS: 93225; 93226 ==

== ENCOUNTER → 2025-02-05 | Outpatient (CLI) | payer MEDICARE, SELFPAY ==
--- NOTE | 2025-02-05 13:57 | CDU_ITS ---
Reason For Study Reason For Study: Dizziness Rt. Velocities/BP Lt. Velocities/BP Prox CCA 82.8/8 cm/sec. Prox CCA 105.2/12.1 cm/sec. Mid CCA 78.4/11.3 cm/sec. Mid CCA 112.5/13.9 cm/sec. Dist CCA 64.1/11.3 cm/sec. Dist CCA 77.8/15.7 cm/sec. Prox ICA 64.1/10.2 cm/sec. Prox ICA 63.3/12.7 cm/sec. Mid ICA 69.4/11.8 cm/sec. Mid ICA 51.4/15.4 cm/sec. Dist ICA 57.9/12.6 cm/sec. Dist ICA 65.5/18.2 cm/sec. Rt. ICA/CCA = 0.89. Lt. ICA/CCA = 0.58. Prox ECA 114.6/6.9 cm/sec. Prox ECA 96.1/10.2 cm/sec. Lt. Vert. 50.6/11 cm/sec. Right Extracranial There is heterogeneous, smooth atherosclerotic plaque noted in the right common carotid artery. There is heterogeneous, irregular atherosclerotic plaque noted in the right internal carotid artery. There is heterogeneous, irregular atherosclerotic plaque noted in the right external carotid artery. Bidirectional flow noted in the right vertebral artery. Left Extracranial There is heterogeneous, irregular atherosclerotic plaque noted in the left common carotid artery. There is heterogeneous, irregular atherosclerotic plaque noted in the left internal carotid artery. There is heterogeneous, irregular atherosclerotic plaque noted in the left external carotid artery. Antegrade flow is noted in the left vertebral artery. Procedure Carotid Duplex 05300. This is a Carotid Duplex examination using B-mode, color flow and specral Doppler. Exam performed in department. VL/Carotid Duplex Ultrasound Interpretation Summary Mild (<50%) stenosis right extracranial internal carotid. Mild (<50%) stenosis left extracranial internal carotid. The Right vertebral flow is bidirectional. The Left vertebral is patent and antegrade. Ordering Physician: Tena Denny Referring Physician: Steve Yu Performed By: Vanessa Cerda RVT
== END | disposition home or self-care (01) ==
LOC: CVS 13:56
PROVIDERS: PCP Family Medicine; Referring Provider Nurse Practitioner Gerontology; Visit Provider Nurse Practitioner Gerontology
DX: R42 Dizziness and giddiness (principal); H53.9 Unspecified visual disturbance
CPT/HCPCS: 93880